=== PATIENT | male | born 2000 | race Hispanic/Latino ===

== ENCOUNTER 2019-04-03 15:24 | Emergency (ER) | payer SELFPAY ==
--- NOTE | 2019-04-03 15:39 | Event Note ---
ED Screening Note ED Screening Note: cut with a pocket knife 3-4 weeks ago had an abscess formed, two weeks nikkie did a needle drainage then went to [facility] a week ago and had I&D with scapel was placed on abx finished today no more drainage states he did receive a tetanus left index finger appears necrotic This initial assessment/diagnostic orders/clinical plan/treatment(s) is/are subject to change based on patients health status, clinical progression and re- assessment by fellow clinical providers in the ED. Further treatment and workup at subsequent clinical providers discretion. Patient/guardian urged not to elope from the ED as their condition may be serious if not clinically assessed and managed. Initial orders include: XR of the left hand
--- NOTE | 2019-04-03 16:44 | Emergency Department Report ---
ED General Adult HPI - General Chief complaint: Extremity Injury, Upper Stated complaint: FINGER WOUND Time Seen by Provider: 04/03/19 15:36 Source: patient Mode of arrival: Ambulatory Limitations: No Limitations - History of Present Illness Initial comments: Patient is 18 years old male with no significant past medical history. Patient presented to the ER stating that he cut his left index fingertip by a knife accidentally 3 weeks ago. Patient stated that he started to have infection he went to another ER and they did a needle drainage and started on Bactrim. Patient stated that he noticed a black discoloration to the tip of the finger. Patient denied any pain or discharge recently. Patient also denied any fever or chills. - Related Data Allergies Allergy/AdvReac Type Severity Reaction Status Date / Time No Known Allergies Allergy Unverified 04/03/19 15:26 ED Review of Systems ROS: Stated complaint: FINGER WOUND Other details as noted in HPI Comment: All other systems reviewed and negative Constitutional: denies: chills, fever Respiratory: denies: cough Gastrointestinal: denies: abdominal pain, nausea ED Past Medical Hx - Past Medical History Previous Medical History?: No - Surgical History Past Surgical History?: No - Social History Smoking Status: Current Every Day Smoker Substance Use Type: None ED Physical Exam - General Limitations: No Limitations General appearance: alert, in no apparent distress - Head Head exam: Present: atraumatic, normocephalic - ENT ENT exam: Present: mucous membranes moist - Respiratory Respiratory exam: Present: normal lung sounds bilaterally - Cardiovascular Cardiovascular Exam: Present: normal heart sounds - Extremities Exam Extremities exam: Present: other (left index finger with a black discoloration to the tip of the finger, and dry with no wet gangrene. Positive strong pulse and good capillary refill.) - Neurological Exam Neurological exam: Present: alert - Skin Skin exam: Present: warm, intact ED Course Vital Signs 04/03/19 04/03/19 15:36 17:12 Temperature 97.8 F Pulse Rate 72 Respiratory 16 16 Rate Blood Pressure 124/83 O2 Sat by Pulse 100 Oximetry ED Medical Decision Making - Lab Data Result diagrams: 04/03/19 16:48 04/03/19 16:48 - Radiology Data Radiology results: report reviewed - Medical Decision Making Patient is 18 years old male with no significant past medical history. Patient presented to the ER stating that he cut his left index fingertip by a knife accidentally 3 weeks ago. Patient stated that he started to have infection he went to another ER and they did a needle drainage and started on Bactrim. Patient stated that he noticed a black discoloration to the tip of the finger. Patient denied any pain or discharge recently. Patient also denied any fever or chills. Labs reviewed and is unremarkable. X-ray of the left index finger is negative for acute finding and no suspicious for osteomyelitis. No clinical evidence of acute cellulitis or abscess. Patient advised to follow-up with his primary care physician in the next 2-3 days and to return to the ER if symptoms get worse or not improved Critical care attestation.: If time is entered above; I have spent that time in minutes in the direct care of this critically ill patient, excluding procedure time. ED Disposition Clinical Impression: Finger infection Disposition: DC-01 TO HOME OR SELFCARE Is pt being admited?: No Condition: Stable Instructions: Cellulitis (ED) Referrals: [facility] [Provider Group] - 3-5 Days
--- NOTE | 2019-04-03 16:51 | XRay Report ---
LEFT INDEX FINGER 3 VIEWS INDICATION / CLINICAL INFORMATION: left index finger infection COMPARISON: None available. FINDINGS: BONES and JOINT(S): No acute fracture or subluxation. No significant arthritis. No suspicious destruc tive bony changes. SOFT TISSUES: Mild generalized edema is seen along the index finger. No distinct wound. ADDITIONAL FINDINGS: None. IMPRESSION: Mild left index finger swelling without a distinct wound or suspicious bone changes suggestive of ost eomyelitis. Signer Name: Elvin Silva MD Signed: 04/03/2019 4:46 PM Workstation Name: [id number]
[2019-04-03 17:11] LABS: Basophils % (Auto) 0.5 % (0.0-1.8); Eosinophils # (Auto) 0.1 K/mm3 (0.0-0.4); Eosinophils % (Auto) 1.5 % (0.0-4.3); Hematocrit 44.3 % (35.5-45.6); Lymphocytes # (Auto) 2.1 K/mm3 (1.2-5.4); Lymphocytes % (Auto) 27.3 % (13.4-35.0); Mean Corpuscular HGB Conc 34 % (32-34); Mean Corpuscular Volume 97 fl (84-94); Monocytes # (Auto) 0.6 K/mm3 (0.0-0.8); Monocytes % (Auto) 8.4 % (0.0-7.3); Platelet Count 320 K/mm3 (140-440); Red Blood Count 4.59 M/mm3 (3.65-5.03); Red Cell Distribution Width 12.8 % (13.2-15.2)
[2019-04-03 17:36] LABS: BUN/Creatinine Ratio 7; Blood Urea Nitrogen 6 mg/dL (9-20); Calcium 9.4 mg/dL (8.4-10.2); Hemolysis Index 9
[2019-04-03 18:08] VITALS: BP 118/78
== END 2019-04-03 18:04 | disposition home or self-care (01) ==
LOC: ED 15:24
DX: L08.9 Local infection of the skin and subcutaneous tissue, unspecified (principal); F17.200 Nicotine dependence, unspecified, uncomplicated
CPT/HCPCS: 36415; 80048; 85025; 99283